=== PATIENT | female | born 1980 ===

== ENCOUNTER 2017-09-26 22:23 | Emergency (ER) | payer MEDICAID ==
[2017-09-26 22:58] VITALS: BP 115/67; PULSE 90; TEMP 98.4; O2SAT 99
--- NOTE | 2017-09-26 23:32 | ED PDOC ---
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 Reports no numbness, no other injury, no decrease in ROM. Past Medical History Vital Signs: Last Vital Signs Temp 98.4 F 09/26/17 22:42 Pulse 90 09/26/17 22:42 Resp 17 09/26/17 22:42 BP 115/67 09/26/17 22:42 Pulse Ox 99 09/26/17 22:42 - Family History Family History: States: Unknown Family Hx - Allergies Allergies/Adverse Reactions: Allergies Allergy/AdvReac Type Severity Reaction Status Date / Time No Known Allergies Allergy Verified 09/26/17 22:58 Review of Systems Constitutional: Negative for: Fever, Malaise Musculoskeletal: Negative for: Hand Pain Skin: Positive for: Other (laceration). Negative for: Rash, Lesions Physical Exam - Physical Exam Appears: Positive for: Well, Non-toxic, In Acute Distress (mild painful distress ) Skin: Positive for: Normal Color, Warm, Dry Pulses-Radial (L): 2+ Extremity: Positive for: Normal ROM, Capillary Refill (<2sec), Other (+2 cm laceration to the base of the L 2nd digit). Negative for: Tenderness, Deformity , Swelling Neurologic/Psych: Positive for: Alert, mechanic general operational test II-XII, Oriented (x3). Negative for : Motor/Sensory Deficits - ECG O2 Sat by Pulse Oximetry: 99 Medical Decision Making Medical Decision Making: Plan : - Lac repair Instructed on proper wound care. Advised to follow up with pmd in 2-3 days for wound check. Procedures - Laceration/Wound Repair L 2nd digit Wound's Depth, Shape: linear Wound Explored: irrigated with water Wound Repaired With: Skin adhesive Wound Complexity: Simple Sterile Dressing Applied?: Yes Progress: Patient tolerated the procedure well. 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
[2017-09-27 00:14] VITALS: RESP 16
== END 2017-09-27 00:10 | disposition home or self-care (01) ==
LOC: H.ER 22:23
DX: S61.221A Laceration with foreign body of left index finger without damage to nail, initial encounter (principal); W26.0XXA Contact with knife, initial encounter; Y92.89 Other specified places as the place of occurrence of the external cause